=== PATIENT | male | born 1965 | race Caucasian/White ===

== ENCOUNTER 2022-08-25 16:10 | Inpatient (IN) | payer OTHER, SELFPAY ==
[2022-08-25] VITALS (18 sets, daily range): BP systolic 98–157; BP diastolic 67–103; PULSE 73–96; RESP 11–32; TEMP 36.3; O2SAT 82–99
--- NOTE | ~2022-08-25 | US_ITS ---
EXAMINATION: US venous doppler E DATE: 08/30/2022 14:42 INDICATION: Left upper limb swelling TECHNIQUE: Grayscale images without and with compression and Doppler images of the bilateral upper ex tremity veins were obtained. COMPARISON: None. FINDINGS: The left internal jugular vein, subclavian vein, axillary vein, brachial vein, basilic vein, cephalic vein, radial vein, and ulnar vein are patent. IMPRESSION: 1. Patent left upper extremity veins. No evidence of venous thrombosis. Reviewed, dictated and finalized at location A.
--- NOTE | ~2022-08-25 | XR_ITS ---
XR chest 1V portable 08/25/2022 17:05 Indication: Altered mental status Procedure: AP portable chest Comparison: No prior studies for comparison. Findings: Cardiomegaly. There is right perihilar and left basilar airspace disease, suspicious for pn eumonia. No pleural effusion or pneumothorax. Elevated right diaphragm. Shallow inspiration with [place] of the pulmonary vessels. Impression: 1: Bilateral infiltrates, suspicious for pneumonia. Reviewed, dictated and finalized at location A. Impression: 1: Bilateral infiltrates, suspicious for pneumonia.
--- NOTE | ~2022-08-25 | CT_ITS ---
EXAMINATION: CT brain wo con DATE: 08/27/2022 16:16 INDICATION: altered mental status . TECHNIQUE: Computed tomography (CT) of the head was performed without intravenous contrast. The mA wa s adjusted according to patient size. Iterative reconstruction technique was employed. The dose-lengt h product was 681.00 mGy-cm. COMPARISON: None. FINDINGS: No acute intracranial hemorrhage or extra-axial fluid collection. No hydrocephalus, mass, or herniation. No acute ischemic infarct. Unremarkable dural venous sinus attenuation. No acute osseous abnormality. Retention cyst/polyp and mucosal thickening in the left maxillary sinus, the remaining aerated spaces are clear. Mild atrophy and chronic white matter change. Atherosclerotic intracranial calcification. Left learning officer ior frontal and temporal encephalomalacia, likely old infarct. Left cerebellar hemisphere encephaloma lacia, likely old infarct. IMPRESSION: No acute intracranial process. Reviewed, dictated and finalized at location K.
--- NOTE | ~2022-08-25 | XR_ITS ---
EXAMINATION: XR chest 1V portable DATE: 09/02/2022 10:16 INDICATION: Shortness of breath TECHNIQUE: frontal view of the chest was obtained. COMPARISON: Chest radiograph dated 09/01/2022 FINDINGS: Lung volumes remain mildly decreased. No interval change in interstitial and airspace opacities in th e bilateral mid and lower lung zones. No pleural effusion or pneumothorax. The cardiomediastinal silh ouette is within normal limits for AP technique. Moderate right glenohumeral osteoarthritis. IMPRESSION: 1. Normal change in opacities in the bilateral mid and lower lung zones which could represent atelect asis, pulmonary edema, pneumonia or some combination thereof. Reviewed, dictated and finalized at location A. IMPRESSION: 1. Normal change in opacities in the bilateral mid and lower lung zones which c ould represent atelectasis, pulmonary edema, pneumonia or some combination ther eof.
--- NOTE | ~2022-08-25 | XR_ITS ---
EXAMINATION: XR chest 1V portable INDICATION: Shortness of breath TECHNIQUE: Portable AP chest at 1110 hours COMPARISON: 08/30/2022 FINDINGS: There are increasing interstitial and airspace opacities of the mid and lower lung zones. N o pleural effusion or pneumothorax. The cardiomediastinal silhouette is normal. Osteoarthritis is not ed in the shoulders. IMPRESSION: 1. Interstitial and airspace opacities of the mid and lower lung zones, consistent with atelectasis v ersus pneumonia versus pulmonary edema Reviewed, dictated and finalized at location L. IMPRESSION: 1. Interstitial and airspace opacities of the mid and lower lung zones, consist ent with atelectasis versus pneumonia versus pulmonary edema
--- NOTE | ~2022-08-25 | XR_ITS ---
EXAMINATION: XR chest 1V portable INDICATION: Fever TECHNIQUE: Portable AP chest at 0845 hours COMPARISON: 08/25/2022 FINDINGS: There are minimal airspace opacities of the lung bases. No pleural effusion or pneumothorax . The cardiomediastinal silhouette is normal. Osteoarthritis is noted in the shoulders. IMPRESSION: 1. Bibasilar airspace opacities, consistent with atelectasis versus pneumonia. Reviewed, dictated and finalized at location L.
--- NOTE | 2022-08-25 16:40 | ECG_ITS ---
Measurements Intervals [place] Rate: 80 P: 19 [place]: 120 QRS: 16 QRSD: 85 T: 20 QT: 263 QTc: 304 Interpretive Statements SINUS RHYTHM NONSPECIFIC ST & T-WAVE ABNORMALITY- DIFFUSE LEADS BASELINE ARTIFACT- V1-V5, V6 BORDERLINE ECG NO PREVIOUS ECG AVAILABLE FOR COMPARISON Electronically Signed On 08-26-2022 8:00:42 CDT by Adilson Cobb D.O.
[2022-08-25 17:12] LABS: Basophils Absolute Auto 0.1 K/mm3 (0.0-0.1); Basophils Percent Auto 0.6 % (0.2-1.2); Eosinophils Absolute Auto 0.2 K/mm3 (0-0.3); Eosinophils Percent Auto 1.2 % (0-4.4); Hematocrit 38.1 % (42.0-52.0); Hemoglobin 11.8 g/dL (14.0-18.0); Immature Granulocyte Absolute 0.08 K/mm3 (0.00-0.031); Immature Granulocyte Percent A 0.5 % (0-0.5); Lymphocytes Absolute Auto 1.53 K/mm3 (0.9-3.2); Lymphocytes Percent Auto 10.4 % (18.3-44.2); Mean Corpuscular Volume 87.2 fl (80-100); Mean Platelet Volume 10.4 fl (7.4-10.4); Monocytes Absolute Auto 1.6 K/mm3 (0.1-0.6); Monocytes Percent Auto 10.9 % (2.6-8.5); Neutrophils Absolute Auto 11.3 K/mm3 (1.3-6.7); Neutrophils Percent Auto 76.4 % (45.5-73.1); Platelet Count Result 190 k/mm3 (150-375); Red Blood Count 4.37 M/mm3 (4.6-6.20); Red Cell Distribution Width 17.3 % (11.5-14.5); White Blood Count 14.7 K/mm3 (4.5-10.0)
[2022-08-25 17:21] LABS: Alanine Aminotransferase 10 U/L (6-50); Albumin Level 2.9 g/dL (3.5-5.1); Alkaline Phosphatase 138 U/L (38-126); Anion Gap 5 mmol/L (8-16); Aspartate Amino Transferase 23 U/L (17-59); Bilirubin,Total 0.5 mg/dL (0.2-1.3); Blood Urea Nitrogen 17 mg/dL (9-20); Calcium 8.6 mg/dL (8.4-10.2); Carbon Dioxide 28 mmol/L (22-30); Chloride 103 mmol/L (98-107); Estimated CRCL calculation 156 ml/min; Estimated Glomerular Filt Rate > 60; Glucose 55 mg/dL (65-110); INR 1.2; Partial Thromboplastin Time 34.1 SECONDS (22.3-36.8); Potassium 4.2 mmol/L (3.4-5.0); Sodium 136 mmol/L (137-145)
[2022-08-25] MEDS: DEXTROSE 50% 25 GM/50 ML SYRINGE IV PUSH (17:25)
[2022-08-25] MEDS: Please add drug allergy info to patient profile. 1 EACH XX (17:34)
[2022-08-25 17:42] LABS: Appearance Urine Clear (Clear); Bilirubin Urine Negative (Negative); Blood Urine Negative (Negative); Color Urine Yellow (Yellow); Glucose Urine UA Negative (Negative); Ketones Urine 1+ mg/dL (Negative); Leukocyte Esterase Ur Negative LEU/UL (Negative); Nitrate Urine Negative (Negative); Protein Urine Negative (Negative); Specific Grav Ur 1.021 (1.001-1.035); pH Urine 6.5 (5.0-9.0)
[2022-08-25 18:03] LABS: Add Urine Microscopic? NO
--- NOTE | 2022-08-25 18:15 | PC.NURSE ---
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 entered room to find pt with iv cath removed. blood on gown and linens. ns infusing on floor. pt holding cardiac lead in hand. pt irritable. swinging arms at staff. pt moved to room 6 for closer observation. another iv line iniated above old bruised site. pt calmed with words. report to marlee quiros.
[2022-08-25] MEDS: SODIUM CHLORIDE 0.9% IV 1,000 ML 999 ML IV CONT (19:07)
--- NOTE | 2022-08-25 19:22 | ED.GENADULT ---
HPI - General Adult General Chief complaint: Altered Mental Status Stated complaint: Altered Mental Status Time Seen by Provider: 08/25/22 16:39 History of Present Illness HPI narrative: Patient is a 56-year-old male who presents ER with decreased mental status. Blood sugar in the field in the 70s. Patient awake and alert but slow to respond. Patient has history of CVA. Unable to provide history. It was reported that he recently recovered from pneumonia. Patient has been hypoxic here and does not typically wear oxygen. Related Data Allergies Allergy/AdvReac Type Severity Reaction Status Date / Time cephalexin [From Keflex] Allergy Unknown Verified 08/25/22 17:33 Review of Systems Review of Systems: ROS unobtainable: Yes unobtainable due to medical condition PMFSH Past Medical History Medical History (Updated 08/25/22 @ 19:29 by Brian Duong MD) COPD (chronic obstructive pulmonary disease) CVA (cerebral vascular accident) Epilepsy Hyperlipidemia Hypertension Social History Social History (Updated 08/25/22 @ 19:27 by Brian Duong MD) Social History: Resides at [facility] Exam Narrative: GENERAL: Chronically ill-appearing, well-nourished, and in no acute distress. HEAD: Normocephalic, atraumatic. EYES: PERRL and EOMI. ENT: Mucous membranes moist but dried cracked lips. NECK: Supple. CHEST: Clear to auscultation. No respiratory distress. HEART: Regular rate and rhythm. Normal peripheral pulses. ABDOMEN: Soft, nontender, nondistendeds. EXTREMITIES: Lower extremities in air boots. Atrophy of the upper extremities. SKIN: Warm, dry, no rash. NEURO: Awake, alert, slow to respond, oriented x 1. Course Course Emergency Course: Patient received D50 for low blood sugar and is much more awake. He is receiving Levaquin for pneumonia. He has been placed on oxygen for his low O2 sat. We will plan admission to hospitalist service. Vital Signs Vital signs: Vital Signs Temperature 97.4 F L 08/25/22 16:10 Pulse Rate 81 08/25/22 16:10 Respiratory Rate 16 08/25/22 16:10 Blood Pressure 157/102 H 08/25/22 16:10 Pulse Oximetry 82 L 08/25/22 16:10 Oxygen Delivery Room Air 08/25/22 16:10 Temperature 97.4 F L 08/25/22 16:10 Pulse Rate 78 08/25/22 18:47 Respiratory Rate 13 08/25/22 18:47 Blood Pressure 123/103 H 08/25/22 17:45 Pulse Oximetry 84 L 08/25/22 18:47 Oxygen Delivery Room Air 08/25/22 16:10 Medical Decision Making Vital Signs Vital Signs: Vital Signs Temperature 97.4 F L 08/25/22 16:10 Pulse Rate 81 08/25/22 16:10 Respiratory Rate 16 08/25/22 16:10 Blood Pressure 157/102 H 08/25/22 16:10 Pulse Oximetry 82 L 08/25/22 16:10 Oxygen Delivery Room Air 08/25/22 16:10 Temperature 97.4 F L 08/25/22 16:10 Pulse Rate 78 08/25/22 18:47 Respiratory Rate 13 08/25/22 18:47 Blood Pressure 123/103 H 08/25/22 17:45 Pulse Oximetry 84 L 08/25/22 18:47 Oxygen Delivery Room Air 08/25/22 16:10 Lab Data 08/25/22 16:54 08/25/22 16:54 Labs: Lab Results 08/25/22 08/25/22 08/25/22 Range/Units 16:54 16:54 16:54 WBC 14.7 H (4.5-10.0) K/mm3 RBC 4.37 L (4.6-6.20) M/mm3 Hgb 11.8 L (14.0-18.0) g/dL Hct 38.1 L (42.0-52.0) % MCV 87.2 (80-100) fl MCH 27.0 (26-34) pg MCHC 31.0 L (32-36) g/dl RDW 17.3 H (11.5-14.5) % Plt Count 190 (150-375) k/mm3 MPV 10.4 (7.4-10.4) fl Immature Gran % (Auto) 0.5 (0-0.5) % Neut % (Auto) 76.4 H (45.5-73.1) % Lymph % (Auto) 10.4 L (18.3-44.2) % [place] % (Auto) 10.9 H (2.6-8.5) % Eos % (Auto) 1.2 (0-4.4) % Baso % (Auto) 0.6 (0.2-1.2) % Lymph # (Auto) 1.53 (0.9-3.2) K/mm3 [place] # (Auto) 1.6 H (0.1-0.6) K/mm3 Eos # (Auto) 0.2 (0-0.3) K/mm3 Baso # (Auto) 0.1 (0.0-0.1) K/mm3 Abs Immat Gran (auto) 0.08 H (0.00-0.031) K/mm3 Absolute Neuts (auto) 11.3 H (1.3-6.7) K
[2022-08-25 19:34] LABS: Glucose Point of Care 70 mg/dl (65-105)
--- NOTE | 2022-08-25 19:53 | PM.IMHP ---
H&P: HPI History of Present Illness Date/Time: 08/25/22 19:53 Chief Complaint: difficulty breathing Narrative: 56-year-old male with past medical history of hyperlipidemia, hypertension, COPD and CVA who presented to the ER from [facility] via EMS due to difficulty breathing. HPI and past medical history obtained from past medical records. Patient is uncooperative and seems to be only oriented to self. As such, patient has not been able to provide any review of history. assisted staff had reported to EMS the patient was altered. He was looking around at garbled speech. In the field patient had glucoses in the low 50s. When he arrived to the hospital his glucoses were still 55. Patient received received an amp of dextrose and was more awake. He was able to drink 2 juices when his repeat glucose was 70. The patient was asking for 2 big max from nursing staff. At the time of my evaluation the patient was swinging at this provider and trying to bite me. He was uncooperative with exam and was screaming and growling at staff. Patient was not noted to be in any respiratory distress. With him not wearing his oxygen his pulse ox was down to 76. The patient was actively fighting both me and the respiratory therapist met were trying to place the patient's oxygen back in his nose. The patient has pressure relieving boots on his feet with small abrasion to the lateral right ankle. He has no reproducible areas of pain on exam but again exam was limited due to lack of patient cooperation. Patient had 5/5 strength of his upper extremities and was localizing staff when he was trying to harm us. Patient was not in any respiratory distress. He was afebrile on presentation. He had no tachycardia or tachypnea. The patient was evidently treated with Cipro at the end of July for pneumonia. Review of Systems Review of Systems: ROS unobtainable: Yes unobtainable due to mental status and other (Lack of patient cooperation) [facility] Past Medical History Medical History COPD (chronic obstructive pulmonary disease) CVA (cerebral vascular accident) Epilepsy Hyperlipidemia Hypertension Family History Family History (Updated 08/25/22 @ 21:02 by Precious Rg DO) Other Unknown family medical history Social History Social History (Updated 08/25/22 @ 21:03 by Precious Rg DO) Social History: Resides at [facility]. Patient is Agnostic. Patient's code status is DNR/DNI per prison documentation. Meds Home Medications and Allergies Home Medications Medication Instructions Recorded Confirmed Type atorvastatin 20 mg tablet mg 08/25/22 History divalproex 500 mg tablet,delayed mg PO 08/25/22 History release famotidine 20 mg tablet mg 08/25/22 History fluoxetine 40 mg capsule mg 08/25/22 History folic acid 1 mg tablet 08/25/22 History hydrocodone 10 mg-acetaminophen tablet 08/25/22 History 325 mg tablet levetiracetam 750 mg tablet mg PO 08/25/22 History lisinopril 2.5 mg tablet mg 08/25/22 History Allergies Allergy/AdvReac Type Severity Reaction Status Date / Time cephalexin [From Keflex] Allergy Unknown Verified 08/25/22 17:33 Vital Signs Vital Signs - 24 hr 08/25/22 16:43 08/25/22 16:10 08/25/22 16:35 Temperature 97.4 F L Pulse Rate 80 81 83 Respiratory Rate 16 14 Blood Pressure 157/102 H Pulse Oximetry 82 L Oxygen Delivery Room Air 08/25/22 16:36 08/25/22 16:45 08/25/22 16:47 Temperature Pulse Rate 83 85 78 Respiratory Rate 32 H 12 16 Blood Pressure 157/102 H 102/67 Pulse Oximetry Oxygen Delivery 08/25/22 17:00 08/25/22 17:01 08/25/22 17:15 Temperature Pulse Rate 73 77 81 Respiratory Rate 16 11 L Blood Pressure 102/81 Pulse Oximetry 90 90 94 Oxygen Delivery 08/25/22 17:16 08/25/22 17:30 08/25/22 17:31 Temperature Pulse Rate 78 76 76 Respiratory Rate 12 1
[2022-08-25] MEDS: IPRATROPIUM BR 0.02% INH SOLN 0.5 MG/2.5 ML VIAL INHALATION (19:56)
[2022-08-25] MEDS: ALBUTEROL SULFATE NEB 2.5 MG/3 ML INH INHALATION (19:57)
[2022-08-25] MEDS: DEXTROSE 5% IN WATER 250 ML 125 ML IV CONT (20:33)
[2022-08-25] MEDS: HALOPERIDOL LACTATE 5 MG/ML VIAL IM (20:39)
[2022-08-25 21:10] LABS: Influenza A QL RT-PCR Negative (Negative); Influenza B QL RT-PCR Negative (Negative); SARS-CoV-2 RNA PCR Negative
[2022-08-25] MEDS: LORazepam INJ (*CRX) 2 MG/ML VIAL 1 MG IV PUSH (21:54)
[2022-08-25 23:18] LABS: Glucose Point of Care 76 mg/dl (65-105)
[2022-08-26] VITALS (16 sets, daily range): BP systolic 108–137; BP diastolic 64–80; PULSE 73–111; RESP 14–30; TEMP 36.2–36.9; O2SAT 81–97; BMI 28.0
[2022-08-26 00:57] LABS: Glucose Point of Care 70 mg/dl (65-105)
[2022-08-26 01:34] LABS: Glucose Point of Care 101 mg/dl (65-105)
[2022-08-26] MEDS: HALOPERIDOL LACTATE 5 MG/ML VIAL 10 MG IM (02:39)
[2022-08-26] MEDS: OLANZapine 10 MG, WATER, STERILE FOR INJECTION 2.1 ML IM (04:59)
[2022-08-26] MEDS: DEXTROSE 5% 1,000 ML 1,000 ML 50 ML IVPB (05:14)
[2022-08-26 05:19] LABS: Glucose Point of Care 81 mg/dl (65-105)
[2022-08-26 05:19] LABS: Glucose Point of Care 85 mg/dl (65-105)
[2022-08-26 05:23] LABS: Basophils Percent Auto 0.4 % (0.2-1.2); Eosinophils Percent Auto 0.1 % (0-4.4); Hematocrit 32.6 % (42.0-52.0); Hemoglobin 10.4 g/dL (14.0-18.0); Immature Granulocyte Absolute 0.07 K/mm3 (0.00-0.031); Immature Granulocyte Percent A 0.7 % (0-0.5); Lymphocytes Absolute Auto 1.63 K/mm3 (0.9-3.2); Lymphocytes Percent Auto 16.1 % (18.3-44.2); Mean Corpuscular HGB Conc 31.9 g/dl (32-36); Mean Corpuscular Hemoglobin 26.7 pg (26-34); Mean Corpuscular Volume 83.8 fl (80-100); Mean Platelet Volume 9.7 fl (7.4-10.4); Monocytes Absolute Auto 1.5 K/mm3 (0.1-0.6); Monocytes Percent Auto 14.5 % (2.6-8.5); Neutrophils Absolute Auto 6.9 K/mm3 (1.3-6.7); Neutrophils Percent Auto 68.2 % (45.5-73.1); Platelet Count Result 145 k/mm3 (150-375); Red Blood Count 3.89 M/mm3 (4.6-6.20); Red Cell Distribution Width 17.3 % (11.5-14.5); White Blood Count 10.1 K/mm3 (4.5-10.0)
[2022-08-26 05:46] LABS: Anion Gap 2 mmol/L (8-16); Blood Urea Nitrogen 13 mg/dL (9-20); Calcium 8.1 mg/dL (8.4-10.2); Carbon Dioxide 27 mmol/L (22-30); Chloride 105 mmol/L (98-107); Estimated CRCL calculation 156 ml/min; Estimated Glomerular Filt Rate > 60; Glucose 80 mg/dL (65-110); Sodium 134 mmol/L (137-145)
[2022-08-26 06:25] LABS: Glucose Point of Care 98 mg/dl (65-105)
[2022-08-26 09:07] LABS: Glucose Point of Care 90 mg/dl (65-105)
[2022-08-26] MEDS: ENOXAPARIN 40 MG/0.4 ML SYRINGE SUB-Q (10:23)
[2022-08-26] MEDS: SILVERGEL (ELTA) 45 ML 1 APPLIC TOPICAL (10:24)
[2022-08-26 10:37] LABS: Glucose Point of Care 90 mg/dl (65-105)
[2022-08-26 12:03] LABS: Glucose Point of Care 101 mg/dl (65-105)
--- NOTE | 2022-08-26 15:34 | PCDIET ---
Tube Feeding or PPN recommendations: If tube feeding or PPN is needed. PPN @ 80 ml/h goal: 1152 kcals, 82 g protein, 2170 ml total volume. OR Jevity 1.2 @ goal rate 50 ml/h for 1320 kcals, 61 g protein. Flushes 50 ml q 4 hours for total water 1187 ml/d Please see Nutrition Assessment for further detail. Dietitian following Batsheva Marshall MS RD LDN
--- NOTE | 2022-08-26 16:55 | PM.IMPN ---
Progress Note: A&P Assessment and Plan (1) Acute respiratory failure with hypoxia: Code(s): J96.01 - Acute respiratory failure with hypoxia Status: Acute Assessment and Plan: Abrasions brought in from correction due to difficulty breathing. He was hypoxic with SB P O2 to 76 on room air. Chest x-ray shows bilateral infiltrates concerning for pneumonia. White count was 15 K. was started on Levaquin. White count has trended downward. He is stable on 6 L. wean oxygen as tolerated. (2) Pneumonia: Code(s): J18.9 - Pneumonia, unspecified organism Status: Acute Assessment and Plan: As above. Concerning for aspiration pneumonia. Continue Levaquin. Follow clinically. When he is more awake and alert, he will need speech therapy evaluation. (3) Agitation: Code(s): R45.1 - Restlessness and agitation Status: Acute Assessment and Plan: Haldol was provided for the patient's agitation. Soft restraints are in place. He is not awake enough to take oral medications. Change Keppra to IV. Hold off on further sedating medications if possible. Check TSH and B12. Urine retention can cause agitation but may have developed due to the medications he received. Will place Sosa with voiding trial later. (4) Hypoglycemia: Code(s): E16.2 - Hypoglycemia, unspecified Status: Acute Assessment and Plan: Glucose was 55 on admission and this was treated. Glucose better. Will add IV fluids. (5) COPD (chronic obstructive pulmonary disease): Code(s): J44.9 - Chronic obstructive pulmonary disease, unspecified Status: Acute Assessment and Plan: No wheezing but course BS. Will add nebulizer treatments. (6) Epilepsy: Code(s): G40.909 - Epilepsy, unspecified, not intractable, without status epilepticus Status: Acute Assessment and Plan: As above. Add Keppra IV. Subjective Date/time seen: 08/26/22 16:55 Interval history: 56yo male with CVA, COPD and seizures here for SOB. Patient is somnolent but arouses. He is unable to provide history. Discussed with sister. Hip replacement in 2006 but developed skin infection around 2015 but progressed over the years to the point where the hip replacement became infected with removal of hardware removed 2 months ago. He has been on abx since that time (last dose was 2 days ago). No clear plans about hip replacement. At baseline, he does not talk well due to stroke. Review of Systems Review of Systems: ROS unobtainable: Yes unobtainable due to mental status Exam Narrative: AF 97.2 112/67 75 24 97% 6L Gen - NARD lying semi-recumbent in bed Chest - coarse BS bilaterally CV - RRR S1/S2. Tele showing no significant dysrhythmias Abd - Soft, ND, bladder distended Ext - No pedal edema. in restraints Neuro - Arouses but mumbled speech Psych - difficult to assess Skin - Warm and dry Objective Data Vital Signs Vital Signs: Vital Signs - 24 hr 08/25/22 17:00 08/25/22 17:01 08/25/22 17:15 Temperature Pulse Rate 73 77 81 Respiratory Rate 16 11 L Blood Pressure 102/81 Pulse Oximetry 90 90 94 Oxygen Delivery Oxygen Flow Rate 08/25/22 17:16 08/25/22 17:30 08/25/22 17:31 Temperature Pulse Rate 78 76 76 Respiratory Rate 12 11 L 11 L Blood Pressure 98/76 L 106/71 Pulse Oximetry 90 87 L 88 L Oxygen Delivery Oxygen Flow Rate 08/25/22 17:45 08/25/22 17:46 08/25/22 18:00 Temperature Pulse Rate 92 94 95 Respiratory Rate 21 H 26 H 16 Blood Pressure 123/103 H Pulse Oximetry 96 95 99 Oxygen Delivery Oxygen Flow Rate 08/25/22 18:47 08/25/22 19:59 08/25/22 20:10 Temperature Pulse Rate 78 90 96 Respiratory Rate 13 17 17 Blood Pressure Pulse Oximetry 84 L Oxygen Delivery Oxygen Flow Rate 08/26/22 00:23 08/26/22 04:00 08/26/22 04:00 Temperature 98.4 F Pulse Rate 94 Respiratory Rate 20 20 30 H Blo
[2022-08-26 17:17] LABS: Glucose Point of Care 85 mg/dl (65-105)
[2022-08-26] MEDS: DEXTROSE 5%/0.9% SOD CHL 1,000 ML 70 ML IV CONT (19:55)
[2022-08-26 21:21] LABS: Glucose Point of Care 109 mg/dl (65-105)
[2022-08-26] MEDS: levETIRAcetam IV 750 MG in DEXTROSE 5% 100 ML 430 MG IVPB (22:18)
[2022-08-26 22:20] LABS: Glucose Point of Care 88 mg/dl (65-105)
[2022-08-27] VITALS (21 sets, daily range): BP systolic 92–112; BP diastolic 51–93; PULSE 72–122; RESP 14–20; TEMP 36.4–37.2; O2SAT 93–100
[2022-08-27 00:08] LABS: Glucose Point of Care 107 mg/dl (65-105)
[2022-08-27] MEDS: IPRATROPIUM BR 0.02% INH SOLN 0.5 MG/2.5 ML VIAL INHALATION ×4 (01:26→20:15)
[2022-08-27 02:40] LABS: Glucose Point of Care 86 mg/dl (65-105)
[2022-08-27 05:19] LABS: Glucose Point of Care 89 mg/dl (65-105)
[2022-08-27 06:08] LABS: Glucose Point of Care 80 mg/dl (65-105)
[2022-08-27 06:41] LABS: Basophils Absolute Auto 0.1 K/mm3 (0.0-0.1); Basophils Percent Auto 0.4 % (0.2-1.2); Eosinophils Absolute Auto 0.1 K/mm3 (0-0.3); Eosinophils Percent Auto 0.4 % (0-4.4); Hemoglobin 10.6 g/dL (14.0-18.0); Immature Granulocyte Absolute 0.08 K/mm3 (0.00-0.031); Immature Granulocyte Percent A 0.7 % (0-0.5); Lymphocytes Absolute Auto 1.98 K/mm3 (0.9-3.2); Lymphocytes Percent Auto 17.3 % (18.3-44.2); Mean Corpuscular HGB Conc 31.2 g/dl (32-36); Mean Corpuscular Hemoglobin 26.6 pg (26-34); Mean Corpuscular Volume 85.4 fl (80-100); Mean Platelet Volume 9.9 fl (7.4-10.4); Monocytes Absolute Auto 2.1 K/mm3 (0.1-0.6); Monocytes Percent Auto 17.9 % (2.6-8.5); Neutrophils Absolute Auto 7.2 K/mm3 (1.3-6.7); Neutrophils Percent Auto 63.3 % (45.5-73.1); Platelet Count Result 156 k/mm3 (150-375); Red Blood Count 3.98 M/mm3 (4.6-6.20); Red Cell Distribution Width 17.8 % (11.5-14.5); White Blood Count 11.4 K/mm3 (4.5-10.0)
[2022-08-27 06:58] LABS: Alanine Aminotransferase 11 U/L (6-50); Albumin Level 2.4 g/dL (3.5-5.1); Alkaline Phosphatase 108 U/L (38-126); Anion Gap -1 mmol/L (8-16); Aspartate Amino Transferase 23 U/L (17-59); Bilirubin,Total 0.5 mg/dL (0.2-1.3); Blood Urea Nitrogen 7 mg/dL (9-20); Calcium 8.1 mg/dL (8.4-10.2); Carbon Dioxide 29 mmol/L (22-30); Chloride 111 mmol/L (98-107); Estimated CRCL calculation 148 ml/min; Estimated Glomerular Filt Rate > 60; Glucose 92 mg/dL (65-110); Magnesium 1.6 mg/dL (1.6-2.3); Potassium 3.7 mmol/L (3.4-5.0); Sodium 139 mmol/L (137-145)
[2022-08-27 08:01] LABS: Glucose Point of Care 90 mg/dl (65-105)
[2022-08-27 08:07] LABS: Folic Acid > 20.0 ng/mL (2.76->20)
--- NOTE | 2022-08-27 09:13 | PM.IMPN ---
Progress Note: A&P Assessment and Plan (1) Acute respiratory failure with hypoxia: Code(s): J96.01 - Acute respiratory failure with hypoxia Status: Acute Assessment and Plan: Patient brought in from [facility] due to difficulty breathing. He was hypoxic with SpO2 76 on room air. Chest x-ray shows bilateral infiltrates concerning for pneumonia. White count was 15 K. He was started on Levaquin. White count higher today. No fever. He is stable on 2L. Continue to wean oxygen as tolerated. (2) Pneumonia: Code(s): J18.9 - Pneumonia, unspecified organism Status: Acute Assessment and Plan: As above. Concerning for aspiration pneumonia but he is from a facility. Continue Levaquin. WBC higher. Follow clinically. He is more awake and alert so will proceed with speech therapy evaluation. Add Vancomycin. Check MRSA swab (3) Agitation: Code(s): R45.1 - Restlessness and agitation Status: Acute Assessment and Plan: Haldol was given for the patient's agitation. Soft restraints are in place. Home meds held or changed to IV. Hold off on further sedating medications if possible. TSH and B12 levels okay. Urine retention can cause agitation but may have developed due to the medications he received. Sosa now in place. He is remaining clam. (4) Hypoglycemia: Code(s): E16.2 - Hypoglycemia, unspecified Status: Acute Assessment and Plan: Glucose was 55 on admission and this was treated. Dextrose added with IV fluids. Glucose low normal range despite adding D5. Will follow. May increase dextrose if he is unable to eat. (5) COPD (chronic obstructive pulmonary disease): Code(s): J44.9 - Chronic obstructive pulmonary disease, unspecified Status: Acute Assessment and Plan: No wheezing and lungs clearer. Continue nebulizer treatments. (6) Epilepsy: Code(s): G40.909 - Epilepsy, unspecified, not intractable, without status epilepticus Status: Acute Assessment and Plan: As above. Patient with hx of seizure and stroke. At baseline, he does not talk well due to stroke per his sister. Continue Keppra IV. Check CT brain to exclude new findings now that he is calmer. (7) Left hip prosthetic joint infection: Code(s): T84.52XA - Infection and inflammatory reaction due to internal left hip prosthesis, initial encounter Status: Acute Assessment and Plan: Per sister: Left hip replacement in 2006. He developed left hip skin infection around 2015 that progressed over the years to the point where the hip replacement became infected with removal of joint about 2 months ago. He had been on abx since that time (last dose was 2 days prior to admission). No clear plans about hip replacement. No obvious infection to the left hip area but still with open area. Continue dressing changes. Subjective Date/time seen: 08/27/22 09:13 Interval history: 56yo male with CVA, COPD and seizures here for SOB. Patient arouses easily. Speech is dysarthric. Hx unable to be obtained. Review of Systems Review of Systems: ROS unobtainable: Yes unobtainable due to mental status Exam Narrative: AF 98.9 92/56 90 14 97% 2L Gen - NARD lying semi-recumbent in bed Chest - clear anteriorly to quiet respirations CV - RRR S1/S2. Tele showing no significant dysrhythmias Abd - Soft, ND, +BS - Sosa secured draining clear yellow urine Ext - No pedal edema. Wrist restraints Neuro - Arouses easily. more responsive to examiner. poor eye contact. refuses parts of the exam. garbled speech Psych - calmer Skin - Warm and dry. left lateral hip surgical deformity with central approx 1cm open incisional wound with scant serous drainage and no strong odor. Objective Data Vital Signs Vital Signs: Vital Signs - 24 hr 08/26/22 10:06 08/26/22 10:12 08/26/22 12:06 Temperature 97.7 F Pulse Rate 89 Respiratory Rate 14 Blo
[2022-08-27] MEDS: levETIRAcetam IV 750 MG in DEXTROSE 5% 100 ML 430 MG IVPB ×2 (09:34→20:40)
[2022-08-27] MEDS: SILVERGEL (ELTA) 45 ML 1 APPLIC TOPICAL (09:35)
[2022-08-27] MEDS: MAGNESIUM SULF 2 GM/WATER 50ML 2 GM/50 ML BAG IVPB (09:39)
[2022-08-27] MEDS: ENOXAPARIN 40 MG/0.4 ML SYRINGE SUB-Q (09:48)
[2022-08-27 11:20] LABS: Glucose Point of Care 114 mg/dl (65-105)
--- NOTE | 2022-08-27 11:28 | PCSTNOTE ---
Bedside swallowing evaluation attempted. Patient strongly refused to take anything orally. Nurse and aid assisted but patient was unwilling. Will attempt to evaluate again tomorrow.
[2022-08-27 17:59] LABS: Glucose Point of Care 127 mg/dl (65-105)
[2022-08-27] MEDS: DEXTROSE 5%/0.9% SOD CHL 1,000 ML 70 ML IV CONT (22:29)
[2022-08-28] VITALS (22 sets, daily range): BP systolic 85–116; BP diastolic 45–70; PULSE 66–105; RESP 13–20; TEMP 36.5–37; O2SAT 93–99
[2022-08-28 00:10] LABS: Glucose Point of Care 120 mg/dl (65-105)
[2022-08-28] MEDS: IPRATROPIUM BR 0.02% INH SOLN 0.5 MG/2.5 ML VIAL INHALATION ×4 (02:23→20:16)
[2022-08-28] MEDS: SILVERGEL (ELTA) 45 ML 1 APPLIC TOPICAL (03:30)
[2022-08-28 05:02] LABS: Basophils Absolute Auto 0.1 K/mm3 (0.0-0.1); Basophils Percent Auto 0.4 % (0.2-1.2); Eosinophils Absolute Auto 0.1 K/mm3 (0-0.3); Eosinophils Percent Auto 0.7 % (0-4.4); Hematocrit 33.8 % (42.0-52.0); Hemoglobin 10.4 g/dL (14.0-18.0); Immature Granulocyte Absolute 0.05 K/mm3 (0.00-0.031); Immature Granulocyte Percent A 0.4 % (0-0.5); Lymphocytes Absolute Auto 1.74 K/mm3 (0.9-3.2); Lymphocytes Percent Auto 15.6 % (18.3-44.2); Mean Corpuscular HGB Conc 30.8 g/dl (32-36); Mean Corpuscular Hemoglobin 26.7 pg (26-34); Mean Corpuscular Volume 86.7 fl (80-100); Mean Platelet Volume 10.6 fl (7.4-10.4); Monocytes Absolute Auto 1.8 K/mm3 (0.1-0.6); Monocytes Percent Auto 15.7 % (2.6-8.5); Neutrophils Absolute Auto 7.5 K/mm3 (1.3-6.7); Neutrophils Percent Auto 67.2 % (45.5-73.1); Platelet Count Result 135 k/mm3 (150-375); Red Cell Distribution Width 17.9 % (11.5-14.5); White Blood Count 11.1 K/mm3 (4.5-10.0)
[2022-08-28 05:08] LABS: Albumin Level 2.5 g/dL (3.5-5.1); Anion Gap 1 mmol/L (8-16); Blood Urea Nitrogen 7 mg/dL (9-20); Calcium 7.8 mg/dL (8.4-10.2); Carbon Dioxide 26 mmol/L (22-30); Chloride 109 mmol/L (98-107); Estimated CRCL calculation 148 ml/min; Estimated Glomerular Filt Rate > 60; Glucose 105 mg/dL (65-110); Phosphorus 3.3 mg/dL (2.5-4.5); Potassium 3.1 mmol/L (3.4-5.0); Sodium 136 mmol/L (137-145)
[2022-08-28] MEDS: KCL 20 MEQ/SW 100 ML 100 ML 50 MEQ IVPB (09:24)
[2022-08-28] MEDS: ENOXAPARIN 40 MG/0.4 ML SYRINGE SUB-Q (09:24)
[2022-08-28] MEDS: levETIRAcetam IV 750 MG in DEXTROSE 5% 100 ML 430 MG IVPB (09:24)
--- NOTE | 2022-08-28 10:37 | PCSTNOTE ---
Attempted bedside swallowing evaluation again. Patient is not responding to me, appears to be ignoring me but may be cognitively unable to respond. not answering yes/no questions. Not following simple instructions. Not able to complete bedside swallowing evaluation at this time.
[2022-08-28 11:42] LABS: Glucose Point of Care 125 mg/dl (65-105)
--- NOTE | 2022-08-28 15:18 | PM.IMPN ---
Progress Note: A&P Assessment and Plan (1) Acute respiratory failure with hypoxia: Code(s): J96.01 - Acute respiratory failure with hypoxia Status: Acute Assessment and Plan: [facility]. He was hypoxic with SpO2 76% on room air. Chest x-ray shows bilateral infiltrates concerning for pneumonia. White count was 15 K. He was started on Levaquin and Vanco added. White count about the same today. No fevers. He is stable on 1L. Continue to wean oxygen as tolerated. Speech notes reviewed. Spoke with sister and she is agreeable to start diet. We will begin with Level 5. Sister understands the risks of recurrent aspiration, hypoxa and . She states patient was on hospice in the past. We discussed hospice and what that means (no further surgeries or appointments; no returning to hospital if he gets sick) and she voices understanding. She is requesting someone reach out to her about hospice. Will place consult (2) Pneumonia: Code(s): J18.9 - Pneumonia, unspecified organism Status: Acute Assessment and Plan: As above. Concerning for aspiration pneumonia. Continue Levaquin and Vanco added. WBC about the same. BCx NGTD. Follow clinically. Start diet and monitor (3) Agitation: Code(s): R45.1 - Restlessness and agitation Status: Acute Assessment and Plan: Haldol was given for the patient's agitation and he required soft restraints. Home meds held or changed to IV. We held off on further sedating medications and he is now more awake and alert. TSH and B12 levels okay. Urine retention can cause agitation and now has a Sosa in place. He is remaining clam. (4) Hypoglycemia: Code(s): E16.2 - Hypoglycemia, unspecified Status: Acute Assessment and Plan: Glucose was 55 on admission and this was treated. Dextrose added with IV fluids. Glucose low normal range and stable. Follow (5) COPD (chronic obstructive pulmonary disease): Code(s): J44.9 - Chronic obstructive pulmonary disease, unspecified Status: Acute Assessment and Plan: No wheezing and lungs clear. Continue nebulizer treatments. (6) Epilepsy: Code(s): G40.909 - Epilepsy, unspecified, not intractable, without status epilepticus Status: Acute Assessment and Plan: As above. Patient with hx of seizure and stroke. At baseline, he does not talk well due to stroke per his sister. CT brain showing no acute process. Continue Keppra IV. Resume Depakote. (7) Left hip prosthetic joint infection: Code(s): T84.52XA - Infection and inflammatory reaction due to internal left hip prosthesis, initial encounter Status: Acute Assessment and Plan: Per sister: Left hip replacement in 2006. He developed left hip skin infection around 2015 that progressed over the years to the point where the hip replacement became infected requiring removal of joint about 2 months ago. He had been on abx since that time (last dose was 2 days prior to admission). No clear plans about hip replacement. No obvious infection to the left hip area but still with open area. Continue dressing changes. Subjective Date/time seen: 08/28/22 15:18 Interval history: 56yo male with CVA, COPD and seizures here for SOB. Patient is alert but garbled speech so hx unable to be obtained. Patient did ask for food. RN states patietn was offered some clears by RN but patient refusing. Per sister, patient confined to bed since the removal of the left hip hardware. She declines to have NGT and does not think the patient would want a PEG. Sister states patient was on hospice in the past. Review of Systems Review of Systems: ROS unobtainable: Yes unobtainable due to mental status Exam Narrative: AF 97.9 85/45 (repeat at bedside 130/100) 78 18 97% 1L Gen - NARD Chest - coarse BS CV - RRR S1/S2. Tele showing no significant dysrhythmias
[2022-08-28] MEDS: DEXTROSE 5%/0.9% SOD CHL 1,000 ML 70 ML IV CONT (18:40)
[2022-08-28] MEDS: DIVALPROEX SODIUM DR 250 MG TABEC 500 MG PO (20:31)
[2022-08-28] MEDS: ACETAMINOPHEN 325 MG TABLET 650 MG PO (20:32)
[2022-08-28] MEDS: levETIRAcetam IV 750 MG in DEXTROSE 5% 100 ML 400 MG IVPB (20:34)
[2022-08-28 20:44] LABS: Glucose Point of Care 98 mg/dl (65-105)
[2022-08-28 21:37] LABS: Vancomycin Trough 20.5 ug/mL (10.0-20.0)
[2022-08-29] VITALS (19 sets, daily range): BP systolic 83–123; BP diastolic 44–77; PULSE 61–99; RESP 12–20; TEMP 36.6–37.1; O2SAT 95–100
[2022-08-29] MEDS: ACETAMINOPHEN 325 MG TABLET 650 MG PO ×2 (01:29→18:03)
[2022-08-29] MEDS: IPRATROPIUM BR 0.02% INH SOLN 0.5 MG/2.5 ML VIAL INHALATION ×4 (02:45→20:49)
[2022-08-29 05:10] LABS: Mean Corpuscular HGB Conc 32.1 g/dl (32-36); Mean Corpuscular Hemoglobin 27.7 pg (26-34); Mean Corpuscular Volume 86.2 fl (80-100); Mean Platelet Volume 9.9 fl (7.4-10.4); Platelet Count Result 121 k/mm3 (150-375); Red Blood Count 3.25 M/mm3 (4.6-6.20); Red Cell Distribution Width 17.6 % (11.5-14.5); White Blood Count 7.9 K/mm3 (4.5-10.0)
[2022-08-29 05:26] LABS: Anion Gap -1 mmol/L (8-16); Blood Urea Nitrogen 7 mg/dL (9-20); Calcium 7.4 mg/dL (8.4-10.2); Carbon Dioxide 27 mmol/L (22-30); Chloride 112 mmol/L (98-107); Estimated CRCL calculation 133 ml/min; Estimated Glomerular Filt Rate > 60; Glucose 84 mg/dL (65-110); Phosphorus 3.1 mg/dL (2.5-4.5); Potassium 3.5 mmol/L (3.4-5.0); Sodium 138 mmol/L (137-145)
[2022-08-29 07:39] LABS: Glucose Point of Care 92 mg/dl (65-105)
[2022-08-29] MEDS: SODIUM CHLORIDE 0.9% IV 500 ML IV CONT (08:53)
[2022-08-29] MEDS: DEXTROSE 5%/0.9% SOD CHL 1,000 ML 70 ML IV CONT (09:01)
[2022-08-29] MEDS: levETIRAcetam IV 750 MG in DEXTROSE 5% 100 ML 430 MG IVPB ×2 (10:18→20:13)
[2022-08-29] MEDS: DIVALPROEX SODIUM DR 250 MG TABEC 500 MG PO ×2 (10:19→20:10)
[2022-08-29] MEDS: ENOXAPARIN 40 MG/0.4 ML SYRINGE SUB-Q (10:19)
[2022-08-29] MEDS: SILVERGEL (ELTA) 45 ML 1 APPLIC TOPICAL (10:40)
--- NOTE | 2022-08-29 12:09 | PCNFU ---
Nutrition Follow-Up Complete: Inadequate oral intake related to altered mental status as evidenced by discussion with RN, pt unable to take PO. Goal:Meet estimated nutrition needs. pt is progressing towards goal. continue with current goal. Pt current nutrition is Minced and moist level 5, Ensure compact BID. Nutrition recommendation: Continue with current plan of care. Last recorded weight is 84.4 kg. Bowel Motility: +Bm 08/26 Labs Reviewed: Hgb:9.0, HCT:28, Alb:2.0, BUN:7, Cr:0.6 Meds Noted: lovenox Skin:DTPI to coccyx Additional Notes: pt diet advanced to minced and moist level 5, intake good at 75-90% of meals so far. pt is also receiving Ensure compact BID and drinking. Reports good appetite. Monitoring intakes, plan of care, labs, etc Follow up in 5 days
[2022-08-29 12:29] LABS: Glucose Point of Care 96 mg/dl (65-105)
--- NOTE | 2022-08-29 13:48 | PM.IMPN ---
Progress Note: A&P Assessment and Plan (1) Acute respiratory failure with hypoxia: Code(s): J96.01 - Acute respiratory failure with hypoxia Status: Acute Assessment and Plan: [facility] due to difficulty breathing. He was hypoxic with SpO2 76% on room air. Chest x-ray shows bilateral infiltrates concerning for pneumonia. White count was 15 K. He was started on Levaquin and Vanco added. White count normal today. No fevers. He was weaned to room air. Speech notes reviewed. Spoke with sister and she was agreeable to start diet. We began with minced and moist and is toelrating this. Sister declined hospice at this time. Improved. (2) Pneumonia: Code(s): J18.9 - Pneumonia, unspecified organism Status: Acute Assessment and Plan: As above. Concerning for aspiration pneumonia. BCx NGTD. MRSA swab pending. WBC normal. Continue Levaquin and Vanco. (3) Agitation: Code(s): R45.1 - Restlessness and agitation Status: Acute Assessment and Plan: Haldol was given for the patient's agitation and he required soft restraints. Home meds held or changed to IV. We held off on further sedating medications and he is now more awake and alert. TSH and B12 levels okay. Urine retention can cause agitation and now has a Sosa in place. He is remaining clam. (4) Hypoglycemia: Code(s): E16.2 - Hypoglycemia, unspecified Status: Acute Assessment and Plan: Glucose was 55 on admission and this was treated. Dextrose added with IV fluids. Glucose better since able to eat. Wean off IV fluids. Follow (5) COPD (chronic obstructive pulmonary disease): Code(s): J44.9 - Chronic obstructive pulmonary disease, unspecified Status: Acute Assessment and Plan: No wheezing and lungs clear. Continue nebulizer treatments. (6) Epilepsy: Code(s): G40.909 - Epilepsy, unspecified, not intractable, without status epilepticus Status: Acute Assessment and Plan: As above. Patient with hx of seizure and stroke. At baseline, he does not talk well due to stroke per his sister. CT brain showing no acute process. Continue Keppra IV. Depakote able to be resumed. (7) Left hip prosthetic joint infection: Code(s): T84.52XA - Infection and inflammatory reaction due to internal left hip prosthesis, initial encounter Status: Acute Assessment and Plan: Per sister: Left hip replacement in 2006. He developed left hip skin infection around 2015 that progressed over the years to the point where the hip replacement became infected requiring removal of joint about 2 months ago. He had been on abx since that time (last dose was 2 days prior to admission). No clear plans about hip replacement. No obvious infection to the left hip area but still with open area. Continue dressing changes. Subjective Date/time seen: 08/29/22 13:48 Interval history: 56yo male with CVA, COPD and seizures here for SOB. Patient is alert with garbled speech but more oriented today. No problems overnight. No SOB. Has a nonproductive cough. No CP. No abd pain. No n/v. Toelrating diet. Exam Narrative: AF 97.98 94/44 84 12 100% RA Gen - NARD Chest - lungs clear anteriorly. nml RR CV - RRR S1/S2. Tele showing no significant dysrhythmias Abd - Soft, ND, +BS Ext - No pedal edema Neuro - Alert, oriented x3 (not president) Psych - calm Skin - Warm and dry. Objective Data Vital Signs Vital Signs: Vital Signs - 24 hr 08/28/22 13:57 08/28/22 14:07 08/28/22 14:46 Temperature Pulse Rate 79 79 Respiratory Rate 18 Blood Pressure 85/45 L Pulse Oximetry Oxygen Delivery 08/28/22 14:52 08/28/22 16:00 08/28/22 16:00 Temperature 98.4 F Pulse Rate 78 84 Respiratory Rate 18 18 Blood Pressure 116/70 Pulse Oximetry 94 Oxygen Delivery Room Air 08/28/22 20:00 08/28/22 20:18 08/28/22 20:18 Temperature
[2022-08-29 16:52] LABS: Glucose Point of Care 165 mg/dl (65-105)
[2022-08-29] MEDS: ATORVASTATIN 20 MG TABLET PO (20:11)
[2022-08-29] MEDS: THERAPEUTIC MULTIVITAMINS/MINERALS TAB (*BKC) 1 TABLET PO (20:11)
[2022-08-29 20:48] LABS: Glucose Point of Care 100 mg/dl (65-105)
[2022-08-29] MEDS: PREGABALIN (*CRX) 75 MG CAPSULE PO (21:57)
[2022-08-30] VITALS (10 sets, daily range): BP systolic 73–112; BP diastolic 42–67; PULSE 55–82; RESP 14–29; TEMP 36.4–37.9; O2SAT 93–100
[2022-08-30] MEDS: SODIUM CHLORIDE 0.9% IV 1,000 ML 999 ML IV CONT (00:05)
[2022-08-30 00:12] LABS: Glucose Point of Care 86 mg/dl (65-105)
[2022-08-30] MEDS: SODIUM CHLORIDE 0.9% IV 1,000 ML 500 ML IV CONT (03:15)
[2022-08-30 03:26] LABS: Appearance Urine Clear (Clear); Bilirubin Urine Negative (Negative); Blood Urine Negative (Negative); Color Urine Yellow (Yellow); Glucose Urine UA Negative (Negative); Ketones Urine Negative (Negative); Leukocyte Esterase Ur Negative LEU/UL (Negative); Nitrate Urine Negative (Negative); Protein Urine Negative (Negative); Specific Grav Ur 1.005 (1.001-1.035)
[2022-08-30 03:37] LABS: Add Urine Microscopic? NO
[2022-08-30 05:05] LABS: Basophils Absolute Auto 0.1 K/mm3 (0.0-0.1); Basophils Percent Auto 0.6 % (0.2-1.2); Eosinophils Absolute Auto 0.2 K/mm3 (0-0.3); Eosinophils Percent Auto 2.1 % (0-4.4); Hematocrit 27.5 % (42.0-52.0); Hemoglobin 8.6 g/dL (14.0-18.0); Immature Granulocyte Absolute 0.03 K/mm3 (0.00-0.031); Immature Granulocyte Percent A 0.4 % (0-0.5); Immature Platelet Fraction Pct 3.5 % (0.9-11.2); Lymphocytes Absolute Auto 1.69 K/mm3 (0.9-3.2); Lymphocytes Percent Auto 21.9 % (18.3-44.2); Mean Corpuscular HGB Conc 31.3 g/dl (32-36); Mean Corpuscular Hemoglobin 27.3 pg (26-34); Mean Corpuscular Volume 87.3 fl (80-100); Mean Platelet Volume 9.8 fl (7.4-10.4); Monocytes Absolute Auto 0.9 K/mm3 (0.1-0.6); Monocytes Percent Auto 11.2 % (2.6-8.5); Neutrophils Absolute Auto 4.9 K/mm3 (1.3-6.7); Neutrophils Percent Auto 63.8 % (45.5-73.1); Platelet Count Result 136 k/mm3 (150-375); Red Blood Count 3.15 M/mm3 (4.6-6.20); Red Cell Distribution Width 17.9 % (11.5-14.5); White Blood Count 7.7 K/mm3 (4.5-10.0)
[2022-08-30 05:12] LABS: Lactic Acid Reflex 0.7 mmol/L (0.7-2.0)
[2022-08-30 05:14] LABS: Alanine Aminotransferase 10 U/L (6-50); Albumin Level 1.9 g/dL (3.5-5.1); Alkaline Phosphatase 83 U/L (38-126); Anion Gap -2 mmol/L (8-16); Aspartate Amino Transferase 16 U/L (17-59); Bilirubin,Total 0.4 mg/dL (0.2-1.3); Blood Urea Nitrogen 6 mg/dL (9-20); Calcium 7.1 mg/dL (8.4-10.2); Carbon Dioxide 25 mmol/L (22-30); Chloride 115 mmol/L (98-107); Estimated CRCL calculation 133 ml/min; Estimated Glomerular Filt Rate > 60; Glucose 79 mg/dL (65-110); Potassium 3.5 mmol/L (3.4-5.0); Sodium 138 mmol/L (137-145)
--- NOTE | 2022-08-30 05:26 | P.PNCROSS_ITS ---
Event Note Event Note Event Note: Nursing staff called to tell me that the patient was hypotensive. Blood pressu res were as low as 79 systolic. The patient had also had decreased urine output. He spiked a fever to 100.3. The patient had not been febrile throughout the entire course of his hospitalization. Evidently I did not know on admission the patient had had prior removal of hardware from his left hip due to osteomyelitis. Patient does have an open wound to the left hip that is draining a small amount of purulent material. There is no surrounding erythema. The patient does not react in a painful [place] when this area is palpated. The patient's initial blood cultures on the day of admission were negative. It is been several days since admission. Repeat blood cultures were ordered. The patient does have a Sosa catheter in place due to urinary retention. A UA with reflex was sent but the patient's urine was unremarkable. The patient's initial COVID swab on admission was negative. However will repeat 1 as it is been 5 days since admission. The patient is being treated for pneumonia. He had been hypoxic earlier in his hospital stay but hypoxia has resolved. The patient is not in any overt respiratory distress. The patient is lethargic and would open his eyes to command in [place] my movement to wear was located but fell asleep before answering any questions. The patient generally looks ill. He is mildly tachypneic but not tachycardic. He received 1 L fluid bolus and blood pressures improved to 89 over 48. A cheetah exam was performed which demonstrated the patient was fluid responsive with 26% change. A 2 L of fluid was ordered over 2 hours. [place] through the 2 L of fluid patient's blood pressures were 91/45. Repeat labs have been ordered for this morning and the lab has drawn them. They are pending. Cbc and CMP as well as lactic acid. The plan had been to transfer the patient to the medical floor but given the patient's new onset of fever and hypotension. The patient re triggered sepsis criteria and in given his hemodynamic instability the patient will remain in IMU. Will continue antibiotic therapy with Levaquin and vancomycin. Given that there is a fair amount of drainage from the patient's leg wound it may be advisable to check a wound culture. Will defer that decision to the daytime team. 38 minute spent in critical care activities. Due to a high probability of clinically significant, life threatening deterioration, the patient required my highest level of preparedness to intervene emergently and I personally spent this critical care time directly and personally managing the patient. This critical care time included obtaining a history; examining the patient; pulse oximetry; ordering and review of studies; arranging urgent treatment with development of a management plan; evaluation of patient's response to treatment; frequent reassessment; and discussions with other providers. It was exclusive of separately billable procedures and treating other patients and teaching time. Please see Assessment and Plan section and the rest of the note for further information on patient assessment and treatment.
[2022-08-30 05:49] LABS: Influenza A QL RT-PCR Negative (Negative); Influenza B QL RT-PCR Negative (Negative); SARS-CoV-2 RNA PCR Negative
[2022-08-30] MEDS: PREGABALIN (*CRX) 75 MG CAPSULE PO (05:51)
[2022-08-30] MEDS: ALBUMIN HUMAN 25% 25 GM/100 ML 100 ML IVPB ×4 (05:51→23:31)
[2022-08-30] MEDS: IPRATROPIUM BR 0.02% INH SOLN 0.5 MG/2.5 ML VIAL INHALATION (07:10)
[2022-08-30 08:08] LABS: Glucose Point of Care 80 mg/dl (65-105)
[2022-08-30] MEDS: SODIUM CHLORIDE 0.9% IV 250 ML 999 ML IV CONT ×2 (08:30→10:31)
[2022-08-30] MEDS: ENOXAPARIN 40 MG/0.4 ML SYRINGE SUB-Q (09:46)
[2022-08-30] MEDS: FLUoxetine HCL 20 MG CAPSULE 40 MG PO (09:47)
[2022-08-30] MEDS: FOLIC ACID 1 MG TABLET PO (09:47)
[2022-08-30] MEDS: DIVALPROEX SODIUM DR 250 MG TABEC 500 MG PO ×2 (09:47→20:15)
[2022-08-30] MEDS: THERAPEUTIC MULTIVITAMINS/MINERALS TAB (*BKC) 1 TABLET PO (09:48)
[2022-08-30] MEDS: SILVERGEL (ELTA) 45 ML 1 APPLIC TOPICAL (09:48)
[2022-08-30] MEDS: ASPIRIN 81 MG ENTERIC TABLET PO (09:52)
--- NOTE | 2022-08-30 10:20 | PM.IMPN ---
Progress Note: A&P Assessment and Plan (1) Hypotension: Code(s): I95.9 - Hypotension, unspecified Status: Acute Assessment and Plan: Either sepsis with HoTN or hypovolemia related to low albumin and poor oral intake. Had low grade fever but normal WBC. Repeat fluid bolus. TSH normal. Repeat UA negative. COVID and influenza negative. CXR repeated showing bibasilar airspace opacities. He remains on room air. BCx NGTD. BCx repeated and are pending. Continue Levaquin (Day 6) and Vanco (Day 4). Check Cortisol level. Continue ALbumin. Add IV fluids. Add midodrine. (2) Acute respiratory failure with hypoxia: Code(s): J96.01 - Acute respiratory failure with hypoxia Status: Acute Assessment and Plan: Patient brought in from longterm due to difficulty breathing. He was hypoxic with SpO2 76% on room air. Chest x-ray showed bilateral infiltrates concerning for pneumonia. White count was 15 K. He was started on Levaquin and Vanco added. White count remaining normal. He was weaned to room air and remains on room air. Speech notes reviewed and he began with minced and moist and is tolerating this. Sister declined hospice at this time. Respiratory status has improved. (3) Pneumonia: Code(s): J18.9 - Pneumonia, unspecified organism Status: Acute Assessment and Plan: As above. Concerning for aspiration pneumonia. BCx NGTD. MRSA swab positive. WBC normal. Continue Levaquin and Vanco. (4) Agitation: Code(s): R45.1 - Restlessness and agitation Status: Acute Assessment and Plan: Haldol was given for the patient's agitation and he required soft restraints. Home meds held or changed to IV. We held off on further sedating medications and he became more awake and alert. TSH and B12 levels okay. Urine retention can cause agitation and now has a Sosa in place. he is sleepy today. We did resume Lyrica which we azalia hold since this can cause somnolence. (5) Hypoglycemia: Code(s): E16.2 - Hypoglycemia, unspecified Status: Acute Assessment and Plan: Glucose was 55 on admission and this was treated. Dextrose added with IV fluids. Glucose better since able to eat. Continue to follow (6) COPD (chronic obstructive pulmonary disease): Code(s): J44.9 - Chronic obstructive pulmonary disease, unspecified Status: Acute Assessment and Plan: No wheezing and lungs clear to quiet respirations. Change nebulizer treatments to prn. (7) Epilepsy: Code(s): G40.909 - Epilepsy, unspecified, not intractable, without status epilepticus Status: Acute Assessment and Plan: As above. Patient with hx of seizure and stroke. At baseline, he does not talk well due to stroke per his sister. CT brain showing no acute process. Continue Keppra IV and Depakote (8) Left hip prosthetic joint infection: Code(s): T84.52XA - Infection and inflammatory reaction due to internal left hip prosthesis, initial encounter Status: Acute Assessment and Plan: Per sister: Left hip replacement in 2006. He developed left hip skin infection around 2015 that progressed over the years to the point where the hip replacement became infected requiring removal of joint about 2 months ago. He had been on abx since that time (last dose was 2 days prior to admission). No clear plans about hip replacement. No obvious infection to the left hip area but still with open area. Continue dressing changes. Check wound culture. Subjective Date/time seen: 08/30/22 10:20 Interval history: 56yo male with CVA, COPD and seizures here for SOB. Patient responsive and ocasionally answers questions but unable to obtain hx today. Patient was HoTN overnight again and had low grade fever. He was treated with IV fluids with benefit. Albumin added when Albumin noted to be 1.9. Overnight provider felt the left hip wound was draining purulent mat'l. Review o
[2022-08-30] MEDS: levETIRAcetam IV 750 MG in DEXTROSE 5% 100 ML 430 MG IVPB ×2 (10:31→20:36)
[2022-08-30] MEDS: SODIUM CHLORIDE 0.9% IV 1,000 ML 75 ML IV CONT ×2 (11:09→23:35)
[2022-08-30] MEDS: MIDODRINE HCL 2.5 MG TABLET 5 MG PO ×3 (11:55→17:08)
[2022-08-30 12:26] LABS: Vancomycin Trough 22.6 ug/mL (10.0-20.0)
[2022-08-30 12:52] LABS: Glucose Point of Care 88 mg/dl (65-105)
[2022-08-30 17:24] LABS: Glucose Point of Care 95 mg/dl (65-105)
[2022-08-30] MEDS: ATORVASTATIN 20 MG TABLET PO (20:15)
[2022-08-30 20:30] LABS: Glucose Point of Care 94 mg/dl (65-105)
[2022-08-31] VITALS: BP 102/59; PULSE 57; RESP 18; TEMP 36.3; O2SAT 96
--- NOTE | 2022-08-31 00:05 | PC.NURSE ---
Patient arrived on 3 Med-Surg at 23:53 from the IMU.
--- NOTE | 2022-08-31 00:08 | PC.NURSE ---
This patient, Cristofer Anguiano Jr., was transferred to [[facility]] on 08/30/22 at 2335. Personal belongings sent with patient. Report given to [KIRSTIE Mccracken]. Appropriate documentation sent with patient.
[2022-08-31 04:00] VITALS: BP 93/63; PULSE 61; RESP 16; TEMP 36.4; O2SAT 94
[2022-08-31 06:39] LABS: Basophils Absolute Auto 0.1 K/mm3 (0.0-0.1); Basophils Percent Auto 1.2 % (0.2-1.2); Eosinophils Absolute Auto 0.4 K/mm3 (0-0.3); Eosinophils Percent Auto 6.4 % (0-4.4); Hematocrit 24.4 % (42.0-52.0); Hemoglobin 7.7 g/dL (14.0-18.0); Immature Granulocyte Absolute 0.04 K/mm3 (0.00-0.031); Immature Granulocyte Percent A 0.6 % (0-0.5); Immature Platelet Fraction Pct 5.4 % (0.9-11.2); Lymphocytes Absolute Auto 1.77 K/mm3 (0.9-3.2); Lymphocytes Percent Auto 26.4 % (18.3-44.2); Mean Corpuscular HGB Conc 31.6 g/dl (32-36); Mean Corpuscular Hemoglobin 26.8 pg (26-34); Mean Platelet Volume 11.2 fl (7.4-10.4); Monocytes Absolute Auto 0.8 K/mm3 (0.1-0.6); Monocytes Percent Auto 12.1 % (2.6-8.5); Neutrophils Absolute Auto 3.6 K/mm3 (1.3-6.7); Neutrophils Percent Auto 53.3 % (45.5-73.1); Platelet Count Result 127 k/mm3 (150-375); Red Blood Count 2.87 M/mm3 (4.6-6.20); Red Cell Distribution Width 17.5 % (11.5-14.5); White Blood Count 6.7 K/mm3 (4.5-10.0)
[2022-08-31 06:53] LABS: Alanine Aminotransferase 8 U/L (6-50); Albumin Level 2.6 g/dL (3.5-5.1); Alkaline Phosphatase 68 U/L (38-126); Anion Gap 3 mmol/L (8-16); Aspartate Amino Transferase 13 U/L (17-59); Bilirubin,Total 0.5 mg/dL (0.2-1.3); Blood Urea Nitrogen 4 mg/dL (9-20); Calcium 7.7 mg/dL (8.4-10.2); Carbon Dioxide 24 mmol/L (22-30); Chloride 113 mmol/L (98-107); Estimated CRCL calculation 156 ml/min; Estimated Glomerular Filt Rate > 60; Glucose 77 mg/dL (65-110); Potassium 3.4 mmol/L (3.4-5.0); Sodium 140 mmol/L (137-145)
[2022-08-31 08:00] VITALS: BP 114/74; PULSE 71; RESP 20; TEMP 36.5; O2SAT 93
[2022-08-31] MEDS: levETIRAcetam IV 750 MG in DEXTROSE 5% 100 ML 430 MG IVPB ×2 (08:04→20:53)
[2022-08-31] MEDS: FLUoxetine HCL 20 MG CAPSULE 40 MG PO (08:06)
[2022-08-31] MEDS: DIVALPROEX SODIUM DR 250 MG TABEC 500 MG PO ×2 (08:06→20:52)
[2022-08-31] MEDS: ENOXAPARIN 40 MG/0.4 ML SYRINGE SUB-Q (08:06)
[2022-08-31] MEDS: ASPIRIN 81 MG ENTERIC TABLET PO (08:07)
[2022-08-31] MEDS: MIDODRINE HCL 2.5 MG TABLET 5 MG PO ×3 (08:07→17:42)
[2022-08-31] MEDS: FOLIC ACID 1 MG TABLET PO (08:07)
[2022-08-31] MEDS: THERAPEUTIC MULTIVITAMINS/MINERALS TAB (*BKC) 1 TABLET PO (08:07)
[2022-08-31] MEDS: SILVERGEL (ELTA) 45 ML 1 APPLIC TOPICAL (08:08)
[2022-08-31 08:26] LABS: Glucose Point of Care 83 mg/dl (65-105)
[2022-08-31 12:00] VITALS: BP 115/74; PULSE 74; RESP 18; TEMP 36.6; O2SAT 92
[2022-08-31 12:09] LABS: Glucose Point of Care 85 mg/dl (65-105)
--- NOTE | 2022-08-31 15:32 | PC.NURSE ---
On 08/31/22, the KOSHER SEALER, Mally White, provided care and completed [facility] documentation on this patient. I have reviewed the KOSHER SEALER's documentation and agree with the findings.
[2022-08-31] MEDS: ACETAMINOPHEN 325 MG TABLET 650 MG PO (16:36)
[2022-08-31 17:01] LABS: Glucose Point of Care 99 mg/dl (65-105)
--- NOTE | 2022-08-31 17:27 | PM.IMPN ---
Progress Note: A&P Assessment and Plan (1) Hypotension: Code(s): I95.9 - Hypotension, unspecified Status: Acute Assessment and Plan: Either sepsis with HoTN or hypovolemia related to low albumin and poor oral intake. Had low grade fever but normal WBC. Repeat fluid bolus. TSH normal. Repeat UA negative. COVID and influenza negative. CXR repeated showing bibasilar airspace opacities. He remains on room air. BCx NGTD. BCx repeated and are pending. Continue Levaquin and Vanco. Cortisol level within normal limits. Hypotension resolved with IV fluids and midodrine, monitor (2) Acute respiratory failure with hypoxia: Code(s): J96.01 - Acute respiratory failure with hypoxia Status: Acute Assessment and Plan: Patient brought [facility] difficulty breathing. He was hypoxic with SpO2 76% on room air. Chest x-ray showed bilateral infiltrates concerning for pneumonia. White count was 15 K. He was started on Levaquin and Vanco added. White count remaining normal. He was weaned to room air and remains on room air. Speech notes reviewed and he began with minced and moist and is tolerating this. Sister declined hospice at this time. Respiratory status has improved. (3) Pneumonia: Code(s): J18.9 - Pneumonia, unspecified organism Status: Acute Assessment and Plan: As above. Concerning for aspiration pneumonia. BCx NGTD. MRSA swab positive. WBC normal. Continue Levaquin and Vanco. (4) Agitation: Code(s): R45.1 - Restlessness and agitation Status: Acute Assessment and Plan: Haldol was given for the patient's agitation and he required soft restraints. Home meds held or changed to IV. We held off on further sedating medications and he became more awake and alert. TSH and B12 levels okay. Urine retention can cause agitation and now has a Sosa in place. We did resume Lyrica which we azalia hold since this can cause somnolence. (5) Hypoglycemia: Code(s): E16.2 - Hypoglycemia, unspecified Status: Acute Assessment and Plan: Glucose was 55 on admission and this was treated. Dextrose added with IV fluids. Glucose better since able to eat. Continue to follow (6) COPD (chronic obstructive pulmonary disease): Code(s): J44.9 - Chronic obstructive pulmonary disease, unspecified Status: Acute Assessment and Plan: No wheezing and lungs clear to quiet respirations. Change nebulizer treatments to prn. (7) Epilepsy: Code(s): G40.909 - Epilepsy, unspecified, not intractable, without status epilepticus Status: Acute Assessment and Plan: As above. Patient with hx of seizure and stroke. At baseline, he does not talk well due to stroke per his sister. CT brain showing no acute process. Continue Keppra IV and Depakote (8) Left hip prosthetic joint infection: Code(s): T84.52XA - Infection and inflammatory reaction due to internal left hip prosthesis, initial encounter Status: Acute Assessment and Plan: Per sister: Left hip replacement in 2006. He developed left hip skin infection around 2015 that progressed over the years to the point where the hip replacement became infected requiring removal of joint about 2 months ago. He had been on abx since that time (last dose was 2 days prior to admission). No clear plans about hip replacement. No obvious infection to the left hip area but still with open area. Continue dressing changes. Check wound culture. Plan DVT prophylaxis with Lovenox GI prophylaxis not indicated Code status DNR Subjective Date/time seen: 08/31/22 17:27 Interval history: 56yo male with CVA, COPD and seizures here for SOB. No overnight events noted. No chest pain or shortness of breath. No nausea, vomiting or diarrhea. No fevers or chills. Review of Systems Review of Systems: 12 point review of systems was assessed and was negative except as noted
[2022-08-31 20:00] VITALS: BP 99/66; PULSE 52; RESP 14; TEMP 36.8; O2SAT 97
[2022-08-31 20:12] LABS: Glucose Point of Care 89 mg/dl (65-105)
[2022-08-31] MEDS: BENZONATATE 100 MG CAPSULE 200 MG PO (20:52)
[2022-08-31] MEDS: ATORVASTATIN 20 MG TABLET PO (20:53)
[2022-08-31] MEDS: SODIUM CHLORIDE 0.9% IV 1,000 ML 75 ML IV CONT (22:01)
[2022-09-01] VITALS: BP 109/66; PULSE 55; RESP 13; TEMP 36.7; O2SAT 96
[2022-09-01 04:00] VITALS: BP 113/71; PULSE 57; RESP 13; TEMP 36.6; O2SAT 94
[2022-09-01 08:19] LABS: Alanine Aminotransferase 9 U/L (6-50); Albumin Level 2.8 g/dL (3.5-5.1); Alkaline Phosphatase 72 U/L (38-126); Anion Gap 2 mmol/L (8-16); Aspartate Amino Transferase 14 U/L (17-59); Bilirubin,Total 0.6 mg/dL (0.2-1.3); Blood Urea Nitrogen 5 mg/dL (9-20); Calcium 7.8 mg/dL (8.4-10.2); Carbon Dioxide 25 mmol/L (22-30); Chloride 112 mmol/L (98-107); Estimated CRCL calculation 133 ml/min; Estimated Glomerular Filt Rate > 60; Glucose 75 mg/dL (65-110); Potassium 3.5 mmol/L (3.4-5.0); Sodium 139 mmol/L (137-145)
[2022-09-01 08:25] LABS: Vancomycin Trough 19.1 ug/mL (10.0-20.0)
[2022-09-01 08:27] LABS: Basophils Absolute Auto 0.1 K/mm3 (0.0-0.1); Basophils Percent Auto 1.3 % (0.2-1.2); Eosinophils Absolute Auto 0.4 K/mm3 (0-0.3); Eosinophils Percent Auto 5.5 % (0-4.4); Hematocrit 26.5 % (42.0-52.0); Hemoglobin 8.2 g/dL (14.0-18.0); Immature Granulocyte Absolute 0.03 K/mm3 (0.00-0.031); Immature Granulocyte Percent A 0.5 % (0-0.5); Lymphocytes Absolute Auto 2.03 K/mm3 (0.9-3.2); Lymphocytes Percent Auto 32.1 % (18.3-44.2); Mean Corpuscular HGB Conc 30.9 g/dl (32-36); Mean Corpuscular Volume 84.1 fl (80-100); Mean Platelet Volume 11.1 fl (7.4-10.4); Monocytes Absolute Auto 0.7 K/mm3 (0.1-0.6); Monocytes Percent Auto 11.2 % (2.6-8.5); Neutrophils Absolute Auto 3.1 K/mm3 (1.3-6.7); Neutrophils Percent Auto 49.4 % (45.5-73.1); Platelet Count Result 178 k/mm3 (150-375); Red Blood Count 3.15 M/mm3 (4.6-6.20); Red Cell Distribution Width 17.8 % (11.5-14.5); White Blood Count 6.3 K/mm3 (4.5-10.0)
[2022-09-01] MEDS: MIDODRINE HCL 2.5 MG TABLET 5 MG PO ×3 (08:34→16:59)
[2022-09-01] MEDS: DIVALPROEX SODIUM DR 250 MG TABEC 500 MG PO ×2 (08:34→20:15)
[2022-09-01] MEDS: THERAPEUTIC MULTIVITAMINS/MINERALS TAB (*BKC) 1 TABLET PO (08:34)
[2022-09-01] MEDS: levETIRAcetam IV 750 MG in DEXTROSE 5% 100 ML 430 MG IVPB ×2 (08:34→20:16)
[2022-09-01] MEDS: FOLIC ACID 1 MG TABLET PO (08:35)
[2022-09-01] MEDS: ASPIRIN 81 MG ENTERIC TABLET PO (08:35)
[2022-09-01] MEDS: FLUoxetine HCL 20 MG CAPSULE 40 MG PO (08:35)
[2022-09-01] MEDS: ENOXAPARIN 40 MG/0.4 ML SYRINGE SUB-Q (08:35)
[2022-09-01] MEDS: BENZONATATE 100 MG CAPSULE 200 MG PO ×3 (08:38→17:02)
[2022-09-01] MEDS: SILVERGEL (ELTA) 45 ML 1 APPLIC TOPICAL (08:43)
[2022-09-01 08:52] LABS: Glucose Point of Care 76 mg/dl (65-105)
--- NOTE | 2022-09-01 10:52 | PM.IMPN ---
Progress Note: A&P Assessment and Plan (1) Hypotension: Code(s): I95.9 - Hypotension, unspecified Status: Acute Assessment and Plan: Either sepsis with HoTN or hypovolemia related to low albumin and poor oral intake. Had low grade fever but normal WBC. Repeat fluid bolus. TSH normal. Repeat UA negative. COVID and influenza negative. CXR repeated showing bibasilar airspace opacities. He remains on room air. BCx NGTD. BCx repeated and are pending. Cortisol level within normal limits. Hypotension resolved with IV fluids and midodrine, monitor. 09/01: Hypotension resolved, blood cultures from 08/26 are negative, repeat cultures 08/30 are NGTD, completed 7 day course of vancomycin plus Levaquin, discontinued after last dose given today. Repeat chest x-ray shows increasing interstitial markings, will give Lasix IV. Do not suspect pneumonia. (2) Acute respiratory failure with hypoxia: Code(s): J96.01 - Acute respiratory failure with hypoxia Status: Acute Assessment and Plan: Patient brought in from long term due to difficulty breathing. He was hypoxic with SpO2 76% on room air. Chest x-ray showed bilateral infiltrates concerning for pneumonia. White count was 15 K. He was started on Levaquin and Vanco added. White count remaining normal. He was weaned to room air and remains on room air. Speech notes reviewed and he began with minced and moist and is tolerating this. Sister declined hospice at this time. Respiratory status has improved. 09/01: 94% on room air, will recheck with speech therapy to see if diet can be advanced. Speech therapy recommends continuing current diet. (3) Pneumonia: Code(s): J18.9 - Pneumonia, unspecified organism Status: Acute Assessment and Plan: As above. Concerning for aspiration pneumonia. BCx NGTD. MRSA swab positive. WBC normal. Completed 7 day course of abx with levaquin and vanc. Repeat chest x-ray pending today 09/01 showed worsening interstitial markings, little concern for pneumonia. (4) Agitation: Code(s): R45.1 - Restlessness and agitation Status: Acute Assessment and Plan: Haldol was given for the patient's agitation and he required soft restraints. Home meds held or changed to IV. We held off on further sedating medications and he became more awake and alert. TSH and B12 levels okay. Urine retention can cause agitation and now has a Sosa in place. Hold Lyrica 09/01: Patient will need voiding trial prior to discharge, start Flomax (5) Hypoglycemia: Code(s): E16.2 - Hypoglycemia, unspecified Status: Acute Assessment and Plan: Glucose was 55 on admission and this was treated. Dextrose added with IV fluids. Glucose better since able to eat. Continue to follow Blood glucose reviewed 09/01 (6) COPD (chronic obstructive pulmonary disease): Code(s): J44.9 - Chronic obstructive pulmonary disease, unspecified Status: Acute Assessment and Plan: Stable, not in exacerbation (7) Epilepsy: Code(s): G40.909 - Epilepsy, unspecified, not intractable, without status epilepticus Status: Acute Assessment and Plan: As above. Patient with hx of seizure and stroke. At baseline, he does not talk well due to stroke per his sister. CT brain showing no acute process. Continue Keppra IV and Depakote (8) Left hip prosthetic joint infection: Code(s): T84.52XA - Infection and inflammatory reaction due to internal left hip prosthesis, initial encounter Status: Acute Assessment and Plan: Per sister: Left hip replacement in 2006. He developed left hip skin infection around 2015 that progressed over the years to the point where the hip replacement became infected requiring removal of joint about 2 months ago. He had been on abx since that time (last dose was 2 days prior to admission). No clear plans about hip replacement. No obvious infection to the left hip are
[2022-09-01 12:04] LABS: Glucose Point of Care 111 mg/dl (65-105)
[2022-09-01] MEDS: TAMSULOSIN HCL 0.4 MG CAPSULE PO (12:27)
[2022-09-01 15:40] VITALS: BP 105/70; PULSE 56; RESP 17; TEMP 36.6; O2SAT 96
[2022-09-01] MEDS: FUROSEMIDE INJ 40 MG/4 ML VIAL IV PUSH (16:10)
[2022-09-01 17:13] LABS: Glucose Point of Care 85 mg/dl (65-105)
[2022-09-01] MEDS: ATORVASTATIN 20 MG TABLET PO (20:15)
[2022-09-01 21:13] LABS: Glucose Point of Care 127 mg/dl (65-105)
[2022-09-01 21:14] VITALS: BP 90/58; PULSE 57; RESP 18; TEMP 36.2; O2SAT 96
[2022-09-02 03:21] VITALS: BP 98/56; PULSE 52; RESP 20; TEMP 36.4; O2SAT 96
[2022-09-02 07:57] LABS: Glucose Point of Care 73 mg/dl (65-105)
[2022-09-02] MEDS: levETIRAcetam IV 750 MG in DEXTROSE 5% 100 ML 430 MG IVPB (08:34)
[2022-09-02] MEDS: ENOXAPARIN 40 MG/0.4 ML SYRINGE SUB-Q (08:38)
[2022-09-02] MEDS: MIDODRINE HCL 2.5 MG TABLET 5 MG PO ×2 (08:38→15:29)
[2022-09-02] MEDS: BENZONATATE 100 MG CAPSULE 200 MG PO ×2 (08:38→15:29)
[2022-09-02] MEDS: FLUoxetine HCL 20 MG CAPSULE 40 MG PO (08:39)
[2022-09-02] MEDS: FOLIC ACID 1 MG TABLET PO (08:39)
[2022-09-02] MEDS: ASPIRIN 81 MG ENTERIC TABLET PO (08:39)
[2022-09-02] MEDS: DIVALPROEX SODIUM DR 250 MG TABEC 500 MG PO (08:39)
[2022-09-02] MEDS: TAMSULOSIN HCL 0.4 MG CAPSULE PO (08:39)
[2022-09-02] MEDS: THERAPEUTIC MULTIVITAMINS/MINERALS TAB (*BKC) 1 TABLET PO (08:39)
[2022-09-02 08:40] VITALS: O2SAT 96
[2022-09-02] MEDS: SILVERGEL (ELTA) 45 ML 1 APPLIC TOPICAL (08:40)
--- NOTE | 2022-09-02 10:11 | PM.DS ---
DS: Admitting Diagnosis Discharge Date 09/02/22 Admitting Diagnosis ams DS: Discharge Diagnosis Discharge Diagnosis (1) Hypotension: Code(s): I95.9 - Hypotension, unspecified Status: Acute Assessment and Plan: Either sepsis with HoTN or hypovolemia related to low albumin and poor oral intake. Had low grade fever but normal WBC. Repeat fluid bolus. TSH normal. Repeat UA negative. COVID and influenza negative. CXR repeated showing bibasilar airspace opacities. He remains on room air. BCx NGTD. BCx repeated and are pending. Cortisol level within normal limits. Hypotension resolved with IV fluids and midodrine, monitor. 09/01: Hypotension resolved, blood cultures from 08/26 are negative, repeat cultures 08/30 are NGTD, completed 7 day course of vancomycin plus Levaquin, discontinued after last dose given today. Repeat chest x-ray shows increasing interstitial markings, will give Lasix IV. Do not suspect pneumonia. 09/02: repeat CXR improved, apparent resolution of interstitial markings after lasix given yesterday. Will d/c lisinopril at discharge. (2) Acute respiratory failure with hypoxia: Code(s): J96.01 - Acute respiratory failure with hypoxia Status: Acute Assessment and Plan: Patient brought in from detention due to difficulty breathing. He was hypoxic with SpO2 76% on room air. Chest x-ray showed bilateral infiltrates concerning for pneumonia. White count was 15 K. He was started on Levaquin and Vanco added. White count remaining normal. He was weaned to room air and remains on room air. Speech notes reviewed and he began with minced and moist and is tolerating this. Sister declined hospice at this time. Respiratory status has improved. 09/01: 94% on room air, will recheck with speech therapy to see if diet can be advanced. Speech therapy recommends continuing level 5 diet with thickened liquids. (3) Pneumonia: Code(s): J18.9 - Pneumonia, unspecified organism Status: Acute Assessment and Plan: As above. Concerning for aspiration pneumonia. BCx NGTD. MRSA swab positive. WBC normal. Completed 7 day course of abx with levaquin and vanc. Repeat chest x-ray 09/01 showed worsening interstitial markings, little concern for pneumonia, lasix given. resolved 09/02. (4) Agitation: Code(s): R45.1 - Restlessness and agitation Status: Acute Assessment and Plan: Haldol was given for the patient's agitation and he required soft restraints. Home meds held or changed to IV. We held off on further sedating medications and he became more awake and alert. TSH and B12 levels okay. Urine retention can cause agitation and now has a Bonilla in place. Hold Lyrica 09/01: Patient will need voiding trial prior to discharge, start Flomax. 09/02: Patient failed voiding trial, bnoilla replaced, cont flomax, urology consult pending, will need outpatient follow up. (5) Hypoglycemia: Code(s): E16.2 - Hypoglycemia, unspecified Status: Acute Assessment and Plan: Glucose was 55 on admission and this was treated. Dextrose added with IV fluids. Glucose better since able to eat. Continue to follow Blood glucose reviewed 09/02 (6) COPD (chronic obstructive pulmonary disease): Code(s): J44.9 - Chronic obstructive pulmonary disease, unspecified Status: Acute Assessment and Plan: Stable, not in exacerbation (7) Epilepsy: Code(s): G40.909 - Epilepsy, unspecified, not intractable, without status epilepticus Status: Acute Assessment and Plan: As above. Patient with hx of seizure and stroke. At baseline, he does not talk well due to stroke per his sister. CT brain showing no acute process. Continue Keppra IV and Depakote (8) Left hip prosthetic joint infection: Code(s): T84.52XA - Infection and inflammatory reaction due to internal left hip prosthesis, initial encounter Status: Acute Assessment and Plan:
--- NOTE | 2022-09-02 10:58 | PCNFU ---
Nutrition Follow-Up Complete: Inadequate oral intake related to altered mental status as evidenced by discussion with RN, pt unable to take PO. Meet estimated nutrition needs - Goal being met Goal: Pt current nutrition is Minced & moist level 5, mildly thickened liquids. 100% intake dinner last. Compact BID. Nutrition recommendation: Continue with current care plan. Agree with orders Last recorded weight is 85.1 kg. Bowel Motility: +2 BMs 09/01/22 Labs Reviewed: Hgb 8.2, Hct 26.5, Alb 2.8, BUN 5, Cre 0.6 Meds Noted: Lovenox Skin: DTI to coccyx, unchanged Additional Notes: Discharge summary is in. Discharge back to CT Monitoring intakes, plan of care, labs, etc Follow up in 3 days
[2022-09-02 12:39] LABS: Glucose Point of Care 92 mg/dl (65-105)
[2022-09-02 14:00] VITALS: BP 90/56; PULSE 65; RESP 18; TEMP 36.3; O2SAT 91
--- NOTE | 2022-09-02 14:51 | WPDURCON ---
Assessment and Plan Assessment and plan (1) BPH (benign prostatic hyperplasia): Code(s): N40.0 - Benign prostatic hyperplasia without lower urinary tract symptoms Status: Acute Assessment and Plan: No need to continue Flomax, patient will be unable to have a urodynamics study and is not a candidate for a prostate procedure. Therefore he is likely destined to a [facility] bonilla catheter with monthly changes as he has failed his voiding trial. (2) Retention of urine: Code(s): R33.9 - Retention of urine, unspecified Status: Acute Assessment and Plan: Continue monthly catheter changes. Urology Consult Note HPI Date Seen: 09/02/22 Time Seen: 12:30 Requesting Physician: Precious Rg DO Primary Care Provider: Dunia Love, Consult Narrative Reason for consult: Retention/BPH Narrative: Cristofer Anguiano Jr. is a 56 year old male who we were called to evaluate for ongoing BPH and urinary retention. The patient was noted to have retention incidentally on 08/27/22 and had a bonilla catheter placed. He was started on Tamsulosin. Unfortunately the patient is unable to provide any health history. It appears he lives in a correction and was on hospice prior to admission. He was seen on admission to the ER on 08/25/22 for SOB and admitted for treatment of pneumonia. WBC is 6.3, creatinine is 0.60 and UA is normal. No concern for UTI. All information was obtained from his chart and nursing staff. Review of Systems Review of Systems: ROS unobtainable: Yes unobtainable due to medical condition and unobtainable due to mental status PMFSH Past Medical History Medical History Bipolar disorder COPD (chronic obstructive pulmonary disease) CVA (cerebral vascular accident) Epilepsy GERD (gastroesophageal reflux disease) Hyperlipidemia Hypertension Urinary incontinence Vitamin D deficiency Surgical History Surgical History Surgical history unknown Family History Family History Other Unknown family medical history Social History Social History Social History: Resides at [facility]. Patient is Agnostic. Patient's code status is DNR/DNI per correction documentation. His sister Diane Floyd is his financial and healthcare power of dial printer. Smoking status: Unknown if ever smoked Alcohol intake: unknown Substance use: unknown Substance use type: unknown Spiritual care concerns: No Meds Home Medications and Allergies Home Medications Medication Instructions Recorded Confirmed Type atorvastatin 20 mg tablet 20 mg PO HS 08/25/22 08/26/22 History divalproex 500 mg tablet,delayed 500 mg PO BID 08/25/22 08/26/22 History release famotidine 20 mg tablet 20 mg PO BID 08/25/22 08/26/22 History fluoxetine 40 mg capsule 40 mg PO DAILY 08/25/22 08/26/22 History folic acid 1 mg tablet 1 mg PO DAILY 08/25/22 08/26/22 History hydrocodone 10 mg-acetaminophen 10 - 325 tablet PO TID 08/25/22 08/26/22 History 325 mg tablet levetiracetam 750 mg tablet 750 mg PO BID 08/25/22 08/26/22 History lisinopril 2.5 mg tablet 2.5 mg PO DAILY 08/25/22 08/26/22 History Adult Multivitamin with Iron 4.5 mg PO DAILY 08/26/22 08/26/22 History aspirin 81 mg tablet,delayed 81 mg PO DAILY 08/26/22 08/26/22 History release (Adult Low Dose Aspirin) baclofen 5 mg tablet 5 mg PO TID PRN Muscle Spasticity 08/26/22 08/26/22 History collagenase clostridium histo. 250 1 applic topical DAILY 08/26/22 08/26/22 History unit/gram topical ointment (Santyl) ergocalciferol (vitamin D2) 1,250 1,250 mcg PO WEEKLY 08/26/22 08/26/22 History mcg (50,000 unit) capsule midazolam 5 mg/spray (0.1 mL) 5 mg intranasal DAILY PRN Seizure 08/26/22 08/26/22 History nasal spray (Nayzilam) Act
[2022-09-02 17:38] LABS: Glucose Point of Care 117 mg/dl (65-105)
== END 2022-09-02 17:10 | DRG 137 ==
LOC: ANHED 19:29 → ANHIMU 23:09 → ANH3MEDSUR 08-30 23:56
PROVIDERS: Internal Medicine; Admitting Provider Internal Medicine; Emergency Provider Emergency Medicine; PCP Family Medicine; Visit Provider Student in an Organized Health Care Education/Training Program
DX: J69.0 Pneumonitis due to inhalation of food and vomit (principal); J96.01 Acute respiratory failure with hypoxia; A41.9 Sepsis, unspecified organism; I95.9 Hypotension, unspecified; E86.1 Hypovolemia; E16.2 Hypoglycemia, unspecified; R45.1 Restlessness and agitation; J44.9 Chronic obstructive pulmonary disease, unspecified; S71.002A Unspecified open wound, left hip, initial encounter; X58.XXXA Exposure to other specified factors, initial encounter; I10 Essential (primary) hypertension; G40.909 Epilepsy, unspecified, not intractable, without status epilepticus; N40.1 Benign prostatic hyperplasia with lower urinary tract symptoms; R33.8 Other retention of urine; Z20.822 Contact with and (suspected) exposure to COVID-19; E78.5 Hyperlipidemia, unspecified; Z96.642 Presence of left artificial hip joint; Z66 Do not resuscitate; Z86.73 Personal history of transient ischemic attack (TIA), and cerebral infarction without residual deficits; Z22.322 Carrier or suspected carrier of Methicillin resistant Staphylococcus aureus; Z78.1 Physical restraint status
CPT/HCPCS: 36415; 70450; 71045; 80048; 80053; 80069; 80202; 81003; 82533; 82607; 82746; 82948; 83605; 83735; 84100; 84443; 85025; 85027; 85055; 85610; 85730; 87040; 87081; 87636; 92610; 93005; 93971; 94640; 96361; 96365; 96366; 96372; 96375; 99285; A9270; G0378; G0379; J1630; J1650; J1940; J1953; J1956; J2060; J3370; J3475; J3480; J7030; J7040; J7042; J7050; J7060; J7070; P9047